=== PATIENT | female | born 1980 | race Caucasian/White ===

== ENCOUNTER 2017-04-30 11:03 | Emergency (ER) | payer MEDICAID ==
[2017-04-30 11:14] VITALS: BP 121/84; PULSE 76; RESP 16; TEMP 98.1; O2SAT 98; BMI 33.7
--- NOTE | 2017-04-30 11:30 | ED PDOC ---
Arrival/HPI - General Chief Complaint: Upper Extremity Problem/Injury Time Seen by Provider: 04/30/17 11:04 Historian: Patient, Spouse - History of Present Illness Narrative History of Present Illness (Text): 04/30/17 11:19 This 37-year-old female with a past medical history of diabetes, presents to the emergency department complaining of left-sided neck pain that radiates to her left trapezius 3 days. Patient admits that she is constantly lifting her 2- year-old son during the day. Patient denies trauma, motor vehicle accident, paresthesias, weakness, shortness of breath, chest pain, abdominal pain, skin rash,, headaches, fever, hemoptysis, recent travel, contact, pain, or abnormal gait. Time/Duration: Other (3 days) Quality: Aching Context: Home Past Medical History - Provider Review Nursing Documentation Reviewed: Yes - Cardiac Hx Hypertension: Yes - Pulmonary Hx Respiratory Disorders: No - Neurological Hx Neurological Disorder: No - HEENT Hx HEENT Disorder: No - Renal Hx Renal Disorder: No - Endocrine/Metabolic Hx Diabetes Mellitus Type 2: Yes - Hematological/Oncological Hx Blood Disorders: No - Integumentary Hx Dermatological Disorder: No - Musculoskeletal/Rheumatological Hx Musculoskeletal Disorders: No - Gastrointestinal Hx Gastrointestinal Disorders: No - Genitourinary/Gynecological Hx Genitourinary Disorders: No - Psychiatric Hx Depression: No Hx Substance Use: No Family/Social History - Physician Review Nursing Documentation Reviewed: Yes Family/Social History: Other (Noncontributory) Smoking Status: Never Smoked Hx Alcohol Use: No Hx Substance Use: No Allergies/Home Meds Allergies/Adverse Reactions: Allergies No Known Allergies Allergy (Verified 04/30/17 11:15) Review of Systems - Review of Systems Constitutional: Normal. absent: Fatigue, Weight Change, Fevers Eyes: Normal ENT: Normal Respiratory: Normal. absent: SOB, Cough Cardiovascular: Normal. absent: Chest Pain, Palpitations, Edema, Calf Pain, DAVIS , Orthopnea, Syncope Gastrointestinal: Normal. absent: Abdominal Pain, Nausea, Vomiting Genitourinary Female: Normal. absent: Dysuria, Frequency, Hematuria Musculoskeletal: Other (See HPI) Skin: Normal. absent: Rash Neurological: Normal Endocrine: Normal Hemo/Lymphatic: Normal Psychiatric: Normal Physical Exam Vital Signs Temp Pulse Resp BP Pulse Ox 04/30/17 11:15 98.1 F 76 16 121/84 98 04/30/17 11:14 98.1 F 76 16 121/84 98 Temperature: Afebrile Blood Pressure: Normal Pulse: Regular Respiratory Rate: Normal Appearance: Positive for: Well-Appearing, Non-Toxic, Comfortable Pain Distress: None Mental Status: Positive for: Alert and Oriented X 3 - Systems Exam Head: Present: Atraumatic, Normocephalic Pupils: Present: PERRL Extroacular Muscles: Present: EOMI Conjunctiva: Present: Normal Mouth: Present: Moist Mucous Membranes Pharnyx: Present: Normal. No: ERYTHEMA, EXUDATE, TONSILS ENLARGED Neck: Present: Normal Range of Motion, Paraspinal Tenderness (Mild left paravertebral tenderness.), Trachea Midline. No: Meningeal Signs, MIDLINE TENDERNESS, Lymphadenopathy Respiratory/Chest: Present: Clear to Auscultation, Good Air Exchange. No: Respiratory Distress, Accessory Muscle Use, Wheezes, Retracting, Rhonchi Cardiovascular: Present: Regular Rate and Rhythm, Normal S1, S2. No: Murmurs Abdomen: Present: Normal Bowel Sounds. No: Tenderness, Distention, Peritoneal Signs Back: Present: Normal Inspection Upper Extremity: Present: Normal Inspection, Normal ROM, NORMAL PULSES, Neurovascularly Intact, Capillary Refill < 2s, Other (Mild left trapezius tenderness on palpation.). No: Cyanosis, Edema Lower Extremity: Present: Normal Inspection, NORMAL PULSES, Normal ROM, Neurovascularly Intact, Capillary Refill < 2 s. No: Edema, CALF TENDERNESS Neurological: Present: GCS=15, CN II-XII Intact, Speech Normal, Motor Func Grossly Intact, Normal Sensory Function, Normal Cerebellar Funct, Gait Normal, Memory Normal Skin: Present: Warm, Dry, Normal Color. No: Rashes Psychiatric: Present: Alert, Oriented x 3, Normal Insight, Normal Concentration Medical Decision Making ED Course and Treatment: 04/30/17 12:23 Patient presented complaining of left sided left trapezius pain 3 days. Denies any trauma or heavy lifting. Cervical exam was unremarkable without any skin rash, except for left paravertebral tenderness and left trapezius tenderness on palpation. She denies denies paresthesias or weakness. Re-evaluation. Patient feels better. Discussed results and plan with patient who expresses understanding. All questions answered and there is agreement with the plan to discharge home with instructions. Patient stable for discharge. Return if symptoms persist or worsen. Patient was recommended to take medication as instructed with food. Avoid driving or operating machinery while taking muscle relaxer. Follow-up with primary care physician in one to 2 days. Return if symptoms worsen. Re-evaluation Time: 12:24 Reassessment Condition: Re-examined, Improved - Medication Orders Current Medication Orders: Discontinued Medications Diazepam (Valium) 5 mg PO ONCE ONE PRN Reason: Protocol Stop: 04/30/17 11:31 Last Admin: 04/30/17 11:45 Dose: 5 mg Ketorolac Tromethamine (Toradol) 30 mg IM STAT STA Stop: 04/30/17 11:31 Last Admin: 04/30/17 11:45 Dose: 30 mg MAR Pain Assessment Document 04/30/17 11:45 AD (Rec: 04/30/17 11:[address] [facility] [place] Pain Reassessment Is this a pain reassessment? No Presence of Pain Presence of Pain Yes Pain Scale Used Pain Scale Used Numeric Location Left, Right or Bilateral Left Pain Location Body Site Neck Shoulder Description Description Constant Intensity of Pain at present 8 Pain Behavior Facial Grimacing Aggravating Factors Changing Position Exercise/Activity Alleviating Factors/Management Medication Techniques IM Administration Charges Document 04/30/17 11:45 AD (Rec: 04/30/17 11:[address] [facility] [place] Injection Site MAR Injection Site Right Deltoid Charges for Administration # of IM Administrations 1 Disposition/Present on Arrival - Present on Arrival Any Indicators Present on Arrival: No History of DVT/PE: No History of Uncontrolled Diabetes: No Urinary Catheter: No History of Decub. Ulcer: No History Surgical Site Infection Following: None - Disposition Have Diagnosis and Disposition been Completed?: Yes Diagnosis: Musculoskeletal pain Disposition: HOME/ ROUTINE Disposition Time: 12:25 Patient Plan: Discharge Condition: GOOD Discharge Instructions (ExitCare): Musculoskeletal Pain (ED) Additional Instructions: Call private doctor in one to 2 days for follow-up. Take medication as instructed with food. Avoid lifting her child which her left arm. Do not drive or operate machine that is all taken Valium. Return to the emergency room if symptoms worsen Prescriptions: diaZEpam [Valium] 5 mg PO DAILY #6 tab Famotidine [Pepcid] 40 mg PO DAILY #10 tablet Naproxen 500 mg PO BID PRN #14 tab PRN Reason: Pain, Severe (8-10) Forms: [facility] (Belgian)
== END 2017-04-30 12:45 | disposition home or self-care (01) ==
LOC: ED 11:03
DX: M79.1 Myalgia (principal); E11.9 Type 2 diabetes mellitus without complications; I10 Essential (primary) hypertension
CPT/HCPCS: 96372; 99284; J1885

== ENCOUNTER 2018-08-06 08:20 | Outpatient (CLI) | payer MEDICAID | END 2018-08-06 08:21 | disposition home or self-care (01) | LOC: RAD 08:20 | DX: G40.909 Epilepsy, unspecified, not intractable, without status epilepticus (principal); R42 Dizziness and giddiness; G44.1 Vascular headache, not elsewhere classified; G60.9 Hereditary and idiopathic neuropathy, unspecified ==

== ENCOUNTER 2018-08-08 05:07 | Emergency (ER) | payer MEDICAID ==
[2018-08-08 05:08] VITALS: BMI 33.7
[2018-08-08 05:26] VITALS: TEMP 97.6; O2SAT 100
--- NOTE | 2018-08-08 05:33 | ED PDOC ---
Arrival/HPI - General Chief Complaint: Abdominal Pain Time Seen by Provider: 08/08/18 05:26 Historian: Patient - History of Present Illness Narrative History of Present Illness (Text): 08/08/18 05:30 38 year old female, whose past medical history includes diabetes, presents to the emergency department complaining of sudden intermittent left-sided chest discomfort that began 2 days ago. Patient describes it as a sharp/stabbing sensation and reports radiating to the left arm. She states the pain woke her up approximately 5-6 hours ago. She states the pain is worse with deep breaths. Patient is also complaining of a headache and dizziness, but reports she has a history of headaches and dizziness which she also reports she had an MRI done yesterday for. Patient denies any fever, chills, shortness of breath, nausea, vomiting, diarrhea, urinary symptoms, back pain, neck pain, or any other complaints. PMD: Dr. Smith Time/Duration: Other (2 days) Symptom Onset: Sudden Symptom Course: Intermittent Quality: Stabbing Activities at Onset: Light Context: Home Past Medical History - Provider Review Nursing Documentation Reviewed: Yes - Infectious Disease Hx of Infectious Diseases: None - Cardiac Hx Hypertension: Yes - Pulmonary Hx Respiratory Disorders: No - Neurological Hx Neurological Disorder: No - HEENT Hx HEENT Disorder: No - Renal Hx Renal Disorder: No - Endocrine/Metabolic Hx Diabetes Mellitus Type 2: Yes - Hematological/Oncological Hx Blood Disorders: No - Integumentary Hx Dermatological Disorder: No - Musculoskeletal/Rheumatological Hx Musculoskeletal Disorders: No - Gastrointestinal Hx Gastrointestinal Disorders: No - Genitourinary/Gynecological Hx Genitourinary Disorders: No - Psychiatric Hx Depression: No Hx Substance Use: No Family/Social History - Physician Review Nursing Documentation Reviewed: Yes Family/Social History: No Known Family HX Smoking Status: Never Smoked Hx Alcohol Use: No Hx Substance Use: No Allergies/Home Meds Allergies/Adverse Reactions: Allergies No Known Allergies Allergy (Verified 08/08/18 05:19) Home Medications: Home Meds Medication Instructions Recorded Confirmed RX: No Known Home Med 08/08/18 08/08/18 Review of Systems - Physician Review All systems were reviewed & negative as marked: Yes - Review of Systems Constitutional: absent: Fevers, Other (Chills) Respiratory: absent: SOB Cardiovascular: Chest Pain Gastrointestinal: absent: Abdominal Pain, Diarrhea, Nausea, Vomiting Genitourinary Female: absent: Dysuria, Frequency, Hematuria Musculoskeletal: absent: Back Pain, Neck Pain Neurological: Headache, Dizziness Physical Exam Vital Signs Reviewed: Yes Vital Signs Temp Pulse Resp BP Pulse Ox 08/08/18 05:25 97.6 F 74 18 129/89 100 Temperature: Afebrile Blood Pressure: Normal Pulse: Regular Respiratory Rate: Normal Appearance: Positive for: Well-Appearing, Non-Toxic, Comfortable Pain Distress: None Mental Status: Positive for: Alert and Oriented X 3 - Systems Exam Head: Present: Atraumatic, Normocephalic Pupils: Present: PERRL Extroacular Muscles: Present: EOMI Conjunctiva: Present: Normal Mouth: Present: Moist Mucous Membranes Neck: Present: Normal Range of Motion Respiratory/Chest: Present: Clear to Auscultation, Good Air Exchange, Tender to Palpation (left chest tenderness). No: Respiratory Distress, Accessory Muscle Use Cardiovascular: Present: Regular Rate and Rhythm, Normal S1, S2. No: Murmurs Abdomen: No: Tenderness, Distention, Peritoneal Signs Back: Present: Normal Inspection Upper Extremity: Present: Normal Inspection. No: Cyanosis, Edema Lower Extremity: Present: Normal Inspection. No: Edema Neurological: Present: GCS=15, CN II-XII Intact, Speech Normal Skin: Present: Warm, Dry, Normal Color. No: Rashes Psychiatric: Present: Alert, Oriented x 3, Normal Insight, Normal Concentration Medical Decision Making ED Course and Treatment: 08/08/18 05:31 Impression: 38 year old female presents complaining of sudden intermittent left-sided chest discomfort that radiates to the left arm that began 2 days ago and woke her up from her sleep 5-6 hours ago. Plan: -- EKG -- Chest X-ray -- Toradol -- Reassess and disposition Prior Visits: Notes and results from previous visits were reviewed. Progress Notes: 08/08/18 05:20 EKG shows Sinus rhythm at 73 BPM with normal axis, normal intervals, not ST elevation, no t-wave change. Interpreted by me. Patient re-evaluated after toradol IM. Still has some pain, but feels better. Discussed EKG and CXR result. Advised outpatient followup and continuing NSAIDs at home. Patient with reproducible chest pain, with normal EKG, only one cardiac risk factor (diabetes), no family history of premature CVD, and no smoking history- unlikely to be cardiac in origin. She is also PERC negative, so unlikely that pain is from PE. Patient also asking what to do about her chronic headaches. She just had a brain MRI two days ago, advised her again to take OTC pain medications, and await her imaging results. Patient stable for discharge home. - Lab Interpretations I have reviewed the lab results: Yes - RAD Interpretation Narrative RAD Interpretations (Text): CXR: NAD Environmental Services Technician: ED Physician - EKG Interpretation Interpreted by ED Physician: Yes Type: 12 lead EKG - Scribe Statement The provider has reviewed the documentation as recorded by the Aidaibe Peggy Willoughby Provider Scribe Attestation: All medical record entries made by the Scribe were at my direction and personally dictated by me. I have reviewed the chart and agree that the record accurately reflects my personal performance of the history, physical exam, medical decision making, and the department course for this patient. I have also personally directed, reviewed, and agree with the discharge instructions and disposition. Disposition/Present on Arrival - Present on Arrival Any Indicators Present on Arrival: No History of DVT/PE: No History of Uncontrolled Diabetes: No Urinary Catheter: No History of Decub. Ulcer: No History Surgical Site Infection Following: None - Disposition Have Diagnosis and Disposition been Completed?: Yes Diagnosis: Chest pain Disposition Time: 06:30 Condition: STABLE Discharge Instructions (ExitCare): Chest Pain (ED) Additional Instructions: WHITNEY MARIO, thank you for letting us take care of you today. Your provider was Jessie Davis MD and you were treated for UPPER STOMACH PAIN. The emergency medical care you received today was directed at your acute symptoms. If you were prescribed any medication, please fill it and take as directed. It may take several days for your symptoms to resolve. Return to the Emergency Department if your symptoms worsen, do not improve, or if you have any other problems. Please contact your doctor or call one of the physicians/clinics you have been referred to that are listed on the Patient Visit Information form that is included in your discharge packet. Bring any paperwork you were given at [facility] with you along with any medications you are taking to your follow up visit. Our treatment cannot replace ongoing medical care by a primary care provider outside of the emergency department. Thank you for allowing the [facility] team to be part of your care today. If you had an X-Ray or CT scan: A Radiologist will review the ED reading if any change in treatment is needed we will contact you. If you had a blood, urine, or wound culture: It will take several days for the results, if any change in treatment is needed we will contact you. If you had an STI test: It will take 48 hours for the results. Please call after 1 week if you have not heard back. Referrals: Rdo Smith MD [Primary Care Provider] - Follow up with primary Forms: [phone] (Kyrgyz)
[2018-08-08 06:36] VITALS: BP 121/72; PULSE 69; RESP 16
--- NOTE | 2018-08-08 13:33 | RAD ---
Date of service: 08/08/2018 HISTORY: chest pain COMPARISON: No prior. FINDINGS: LUNGS: No active pulmonary disease. PLEURA: No significant pleural effusion identified, no pneumothorax apparent. CARDIOVASCULAR: No aortic atherosclerotic calcification present. Normal cardiac size. No pulmonary vascular congestion. OSSEOUS STRUCTURES: No significant abnormalities. VISUALIZED UPPER ABDOMEN: Normal. OTHER FINDINGS: None. IMPRESSION: No active disease.
--- NOTE | 2018-08-08 22:29 | CARD ---
APPROVED REPORT Date of service: 08/08/2018 EKG Measurement Heart [id number] <Conclusion> Normal sinus rhythm Normal ECG
== END 2018-08-08 06:36 | disposition home or self-care (01) ==
LOC: ED 05:07
DX: R07.89 Other chest pain (principal); I10 Essential (primary) hypertension; E11.9 Type 2 diabetes mellitus without complications
CPT/HCPCS: 71045; 81025; 93005; 96372; 99283; J1885